=== PATIENT | male | born 1990 ===

== ENCOUNTER 2025-03-01 08:41 | Outpatient (CLI) | payer OTHER | END 2025-03-01 08:42 | disposition home or self-care (01) | LOC: CSHSLEEP 08:41 | PROVIDERS: ATTEND Internal Medicine | DX: G47.33 Obstructive sleep apnea (adult) (pediatric) (principal); F32.A Depression, unspecified; I10 Essential (primary) hypertension | CPT/HCPCS: 95800 ==